=== PATIENT | female | born 1950 | race Caucasian/White ===

== ENCOUNTER 2016-08-07 13:29 | Inpatient (IN) | payer MEDICARE, BC ==
[~2016-08-07] VITALS: Ht 165.1 cm; Wt 81.6 kg
[~2016-08-07 13:29] MED LIST: MESA800T PO; [UNRECOGNIZED DRUG - OTHER] PO
--- NOTE | 2016-08-07 13:38 | NUR ---
PT BIB PA FOR MEDICAL CLEARANCE AND GPS ADMISSION. DENIES PHYSICAL COMPLAINTS. NAD NOTED. IN ER BED 11.
[2016-08-07 13:43] LABS: BASOPHILS % (AUTO) 0.4 % (0.0-2.0); EOSINOPHILS # (AUTO) 0.1 /CMM (0.0-0.7); EOSINOPHILS % (AUTO) 0.9 % (0.0-6.0); HEMATOCRIT 42 % (33-45); HEMOGLOBIN 14.1 g/dL (11.5-14.8); LYMPHOCYTES # (AUTO) 1.5 /CMM (0.8-4.8); LYMPHOCYTES % (AUTO) 23.7 % (20.0-44.0); MEAN CORPUSCULAR HEMOGLOBIN 31 PG (26.0-33.0); MEAN CORPUSCULAR HGB CONC 33 g/dl (31.0-36.0); MEAN CORPUSCULAR VOLUME 93 fL (82-100); MONOCYTES # (AUTO) 0.3 /CMM (0.1-1.30); MONOCYTES % (AUTO) 4.7 % (2.0-12.0); NEUTROPHILS # (AUTO) 4.3 /CMM (1.8-8.9); NEUTROPHILS % (AUTO) 70.3 % (43.0-81.0); PLATELET COUNT (AUTO) 217 /CMM (150-450); RDW COEFFICIENT OF VARIATION 12.7 (11.5-15.0); RED BLOOD CELL COUNT(AUTO) 4.52 MIL/uL (4.0-5.2); WHITE BLOOD COUNT (AUTO) 6.2 K/uL (4.3-11.0)
[2016-08-07 13:59] LABS: ACETAMINOPHEN 0 ug/ml (10-30); ALANINE AMINOTRANSFERASE 24 U/L (12-78); ALBUMIN 3.6 g/dL (3.4-5.0); ALCOHOL, BLOOD < 3 mg/dL (0-0); ALKALINE PHOSPHATASE 51 U/L (46-116); ASPARTATE AMINOTRANSFERASE 18 U/L (15-37); BILIRUBIN,DIRECT 0.2 mg/dL (0.0-0.2); BILIRUBIN,TOTAL 0.8 mg/dL (0.2-1.0); CALCIUM, SERUM 8.8 mg/dL (8.5-10.1); CARBON DIOXIDE 29 mmol/L (21-32); CHLORIDE 107 mmol/L (98-107); CREATININE 0.6 mg/dL (0.6-1.3); GLUCOSE 100 mg/dL (74-106); SALICYLATE 0.8 mg/dL (2.8-20.0); SODIUM SERUM 140 mmol/L (136-145); TOTAL PROTEIN, SERUM 7.2 g/dL (6.4-8.2); UREA NITROGEN, BLOOD 9 mg/dL (7-18)
[2016-08-07] MEDS ORDERED: MERC50TA PO (14:02)
--- NOTE | 2016-08-07 14:41 | NUR ---
GPS 215-A
--- NOTE | 2016-08-07 15:25 | NUR ---
RESTING QUIETLY, NAD NOTED. ALL NEEDS ATTENDED TO.
--- NOTE | 2016-08-07 15:34 | NUR ---
REPORT GIVEN TO HUMBERTO MOORE FOR ADMISSION
[2016-08-07 15:47] LABS: APPEARANCE,URINE Clear (CLEAR); BILIRUBIN,URINE Negative (NEGATIVE); BLOOD, URINE Trace-intact Ery/uL (NEGATIVE); COLOR,URINE Yellow (YELLOW); KETONES,URINE Trace (NEGATIVE); LEUKOCYTE ESTERASE ,URINE Small (NEGATIVE); NITRITE, URINE Negative (NEGATIVE); PROTEIN,URINE Negative (NEGATIVE); UGLUCOSE Negative (NEGATIVE); UROBILINOGEN,URINE 0.2 EU/dL (0.2)
[2016-08-07 15:54] LABS: BACTERIA,URINE Rare /HPF (None Seen); RBC,URINE 0-2 /HPF (0-2)
[2016-08-07 15:55] LABS: SQUAMOUS EPITHELIAL CELL,UR Few /HPF (None Seen)
--- NOTE | 2016-08-07 16:00 | NUR ---
PT TRANSPORTED TO [facility] 215-A IN STABLE CONDITION
[2016-08-07] MEDS ORDERED: clonazePAM 0.5 MG TABLET PO PRN (16:30)
[2016-08-07] MEDS ORDERED: ACETAMINOPHEN 325 MG TABLET PO PRN (16:30)
[2016-08-07] MEDS ORDERED: MAGNESIUM HYDROXIDE 30 ML UDC PO PRN (16:30)
[2016-08-07] MEDS ORDERED: TEMAZEPAM 7.5 MG CAPSULE PO PRN (16:30)
[2016-08-07] MEDS ORDERED: MAG HYDROX/AL HYDROX/SIMETH 30 ML UDC PO PRN (16:30)
[2016-08-07 17:06] VITALS: BP 114/89
--- NOTE | 2016-08-07 17:36 | NUR ---
pt from home, medically cleared from ER and brought in to [facility] for 5150 for danger to self and others. per hold, she wants to shot herself with a gun. Pt is alert oriented x 4 and ambulatory. pt is calm, pleasant, and cooperative upon admission. pt denies plan on hurting herself. pt denies any psych history. medical hx of ulcerative colitis and right knee torn meniscus.pt is currently wearing a right knee brace for stabilization. recent surgical hx of left knee replacement, 07/2016. mrsa swab done in ER. skin assessment done and appears to have no visible skin breakdown although patient refuse buttock assessment. psych, dr. scott notified and obtained standing admission orders. meat cutter apprentice, dr maria from [facility], notified office of new admission. per grocery store clerk, will page dr maria of new admission. pt contrabanded personal belongings. pt oriented to unit. pt going to room 215A.
[2016-08-07 20:00] VITALS: BP 141/88
[2016-08-07 20:24] VITALS: BP 141/88
--- NOTE | 2016-08-07 21:31 | NUR ---
[facility].RECON.DR MOO ROJO IS OCEAN FREIGHT MANAGER ,AWAITING FOR THE RETURN CALL.
--- NOTE | 2016-08-07 22:26 | NUR ---
2135:I S POKE TO DR MOO ROJO AND INFORMED HIM THAT PER PATIENT , SHE IS TAKING THE MEDICATIONS ASACOL 800 MG PO BID AND MERCAPTOPURINE [address] CORTÉS SAID HE WILL RECONCILE THE SAID MEDICATIONS.
[2016-08-08 07:20] LABS: ALBUMIN 3.4 g/dL (3.4-5.0); BILIRUBIN,TOTAL 0.9 mg/dL (0.2-1.0); CALCIUM, SERUM 8.8 mg/dL (8.5-10.1); CREATININE 0.6 mg/dL (0.6-1.3); POTASSIUM 4.1 mmol/L (3.5-5.1)
[2016-08-08 08:05] VITALS: BP 130/70
--- NOTE | 2016-08-08 15:39 | NUR ---
Initial Discharge: Patient lives alone [id number] [place] [address], [phone] ([phone]). Patient state that she would like to return home upon discharge. cinder worker attempted to contact patient's Casey Acosta ([phone]) and he was unavailable, director of social services left a message with her contact information. cinder worker attempted to contact patient's daughter Anne Acosta ([phone]) however, she was unavailable director of social services left a message with her contact information. cinder worker will help form a safe and proper discharge.
[2016-08-08 15:40] VITALS: BP 103/69
--- NOTE | 2016-08-08 15:52 | NUR ---
Patients daughter Sandie Chun ([phone]) is patient's other contact.
[2016-08-08] MEDS: MESALAMINE 400 MG CAP PO SCH (16:52)
[2016-08-08] MEDS: ESCITALOPRAM OXALATE (10 MG) 10 MG TABLET PO SCH (17:18)
[2016-08-08 20:00] VITALS: BP 115/62
[2016-08-09] MEDS ORDERED: ASPIRIN/ACETAMINOPHEN/CAFFEINE 1 EACH TABLET PO PRN (01:00)
--- NOTE | 2016-08-09 06:16 | NUR ---
GPS/RN SLEEPING, NO BEHAVIOR PROBLEM OVERNIGHT. PER RV TECHNICIAN, PT. REFUSED BLOOD DRAW. LAB WILL F/U LATER. WILL CONTINUE TO MONITOR.
[2016-08-09 08:00] VITALS: BP 140/81
[2016-08-09] MEDS: ESCITALOPRAM OXALATE (10 MG) 10 MG TABLET PO SCH ×2 (09:00→09:01)
[2016-08-09] MEDS: MESALAMINE 400 MG CAP PO SCH ×2 (09:00→16:41)
--- NOTE | 2016-08-09 09:07 | NUR ---
GPS/RN PT REFUSED AM MEDS. STATES: "IT MAKES ME TO THROW UP..."
[2016-08-09 15:28] VITALS: BP 104/69
--- NOTE | 2016-08-09 15:42 | NUR ---
DR. VELEZ SPOKE TO PATIENT AND AFTER TALKING TO PT. GAVE AN ORDER TO D/C HOLD AND D/C HOME. PT. WITHOUT DISTRESS, DENIES SUICIDAL AND HOMICIDAL. TO FOLLOW UP WITH PSYCH ND MEDICAL DOCTORS.
--- NOTE | 2016-08-09 16:42 | NUR ---
GPS/RN NO SI OR HI NOTED. PT DECLINED PRESCRIPTIONS FROM MEDICAL DOCTOR. STATES: I HAVE MEDS AT HOME..
--- NOTE | 2016-08-09 17:34 | NUR ---
DR. GARCIA RESCINDED THE D/C ORDER AND PLACED PT. ON 14 DAY HOLD. Addendum: 08/09/16 at 1856 by ODILIA ROGERS RN DR. Garcia ordered to put back on 1:1.
--- NOTE | 2016-08-09 17:56 | NUR ---
postal worker called [place] [employer] ([phone]) and spoke to Deputy Sheriff Beck to inform him that we needed weapons to be cleared from patient's home in order to discharge the patient. postal worker provided them with contact information for the geriatric psych unit and asked them to inform the charge nurse if the home is clear and safe for patient to return so that she may be discharged.
--- NOTE | 2016-08-09 18:43 | NUR ---
GPS/RN RECEIVED CALL FROM [place] [employer] ([phone]) Process Mechanic MOORE. PER OFFICER WILMAN THEY UNABLE TO CLEAR THE HOUSE NOBODY PRESENT @THE HOUSE AND THE FAMILY NEED TO DELIVER THE HOUSE KEYS TO THE STATION IN ORDER FOR OFFICERS TO HAVE THE ACCESS TO THE HOUSE. MEDICAL OFFICE CLERK AND CHARGE ODILIA MADE AWARE OF THE CALL. PATIENT WAS EMPLANED THE SITUATION BY CHARGE ODILIA WELL. DR VELEZ AWARE.
[2016-08-09 20:00] VITALS: BP 101/73
--- NOTE | 2016-08-09 20:04 | NUR ---
RN NOTES RECEIVED PX AWAKE AND IN BED, NO S/SX OR COMPLAINTS OF PAIN AT THIS TIME. PX IS DISPLAYING NO S/SX OF APPARENT DISTRESS AT THIS TIME. PATIENT BREATHING IS UNLABORED WITH EQUAL RISE AND FALL OF THE CHEST. PATIENT IS ALERT AND ORIENTED X 4, ON ROOM AIR WITH SPO2 98%. PATIENT IS MED COMPLIANT. PATIENT DENIES SUICIDE IDEATIONS OR HOMICIDAL IDEATIONS AT THIS TIME. PATIENT ASSISTED WITH TURNING AND REPOSITIONING Q2 HR AND PRN FOR COMFORT AND CIRCULATION. PATIENT HAS NO NEEDS AT THIS TIME. PATIENT EDUCATED ON THE USE OF THE CALL LAN. PATIENT BED SIDE RAILS UP X 2 FOR SAFETY, BED IS LOCKED AND LOW AND WILL CONTINUE TO MONITOR AND MAINTAIN SAFETY.
--- NOTE | 2016-08-09 20:43 | NUR ---
RN NOTES PX COMPLAINED OF MIGRAINE HEADACHE /, ACHING AND THROBBING, EXCEDRIN GIVEN PER PX REQUEST. SEEN TALKING ON THE PHONE WITH DAUGHTER.
--- NOTE | 2016-08-09 21:11 | NUR ---
RN NOTES DENIED HEADACHE OR PAIN; GAVE RESTORIL PER PATIENT REQUEST.
--- NOTE | 2016-08-10 06:45 | NUR ---
RN NOTES NO OVERNIGHT EVENTS; DENIED PAIN, SOB, N/V; REFUSED EARLY AM CARE; SITTER AT BEDSIDE; CALL LAN WITHIN REACH. WILL ENDORSE TO NEXT RN. Addendum: 08/10/16 at 0648 by LEIGHTON FRANCES RN SLEPT FOR 5 HOURS
[2016-08-10 08:00] VITALS: BP 102/65
[2016-08-10] MEDS: ESCITALOPRAM OXALATE (10 MG) 10 MG TABLET PO SCH (09:00)
[2016-08-10] MEDS: MESALAMINE 400 MG CAP PO SCH (09:00)
--- NOTE | 2016-08-10 10:00 | NUR ---
CONVEYOR WEIGHER OPERATOR-NOTES PATIENT REFUSED LEXAPRO 5MG P.O AND DELZICOL 800MG P.O DESPITE EXPLANATIONS RISK AND BENEFITS. PATIENT STATED" I DON'T TAKE BECAUSE IT MAKES ME SICK". OFFERED X3
--- NOTE | 2016-08-10 12:41 | NUR ---
RECEIVED A CALL FROM ANIRUDHUTYosi DICKEY WITH [facility] # [id number] AND SAID PT. IS CLEARED TO RETURN HOME AND NO FIREARMS IN THE HOUSE. DR. VELEZ NOTIFIED AND GAVE AN ORDER TO D/C HOLD AND D/C HOME TODAY. PT. WITHOUT DISTRESS, DENIES SUICIDAL AND HOMICIDAL. TO FOLLOW UP WITH PSYCH AND MEDICAL DOCTORS. DAUGHTER JOSELIN IS AWARE OF THE DISCHARGE.
--- NOTE | 2016-08-10 12:55 | NUR ---
DR. RAMON IS AWARE OF THE DISCHARGE AND SAID OK FOR DISCHARGE. PT. IS FOR DISCHARGE WITH NO PRESCRIPTIONS AND PER PT. SHE HAS HER MEDS AT HOME.
--- NOTE | 2016-08-10 14:27 | NUR ---
MANAGER TELEMARKETING-NOTES PATIENT DISCHARGE TO HOME TODAY DR. VELEZ AND DR. RAMON AWARE AND AGREES OF PATIENT DISCHARGE. ADVICE PATIENT TO SEE HER OUTSIDE PSYCHIATRIST AND MEDICAL DOCTOR AND AGREED. PATIENT WAS DISCHARGE WITHOUT RX. PER PATIENT SHE HAS MEDICATIONS AT HOME. ALL DISCHARGE PAPERS WAS SIGN BY THE PATIENT INCLUDING BELONGING LIST. A COPY WAS GIVEN TO THE PATIENT. PATIENT LEFT THE UNIT IN STABLE CONDITION,AMBULATORY WITH ALL HER BELONGINGS. SHE WAS ASSISTED BY ONE FINE PATCHER STAFF IN THE LOBBY FOR SAFETY. FRIT MIXER BY DAUGHTER BRIAN CANDELARIA VIA PRIVATE CAR.
== END 2016-08-10 14:15 | disposition home or self-care (01) | DRG 885 ==
LOC: ER 13:31 → GPS 16:11
PROVIDERS: ADMIT Internal Medicine; ATTEND Psychiatry & Neurology Psychiatry
DX: F33.2 Major depressive disorder, recurrent severe without psychotic features (principal); K51.90 Ulcerative colitis, unspecified, without complications; R45.851 Suicidal ideations; Z96.652 Presence of left artificial knee joint; Z79.899 Other long term (current) drug therapy
CPT/HCPCS: 36415; 80048-TC; 80053-TC; 80076-TC; 80305; 81000-TC; 85025-TC; 87081-TC; 87086-TC; 97001-TC; A4606; G0480; Z7610